=== PATIENT | female | born 1970 | race Caucasian/White ===

== ENCOUNTER 2025-04-08 06:33 | Observation (INO) ==
--- NOTE | 2025-04-08 07:20 | Emergency Department Note ---
History of Present Illness General Chief complaint: Urinary Symptoms Stated complaint: URINARY SYMPTOMS Time Seen by Provider: 04/08/25 06:54 History of Present Illness Maximum Pain Intensity: 10 This is a 54-year-old female w/ history of hysterectomy that presents to the emergency department via private vehicle with complaints of "left lower quadrant abdominal pain, urinary frequency". The patient notes this past Saturday she developed hematuria and frequent urination. Symptoms have progressed and now notes left lower quadrant abdominal pain. She notes PCP visit on Saturday and had an ultrasound of the kidneys and bladder area. She notes that there was a lesion found and is pending MRI. The patient however notes progressive left lower quadrant abdominal pain now 04/02. Currently on oral Cipro plus Azo. She has nausea. No fevers or vomiting. No pertinent past medical history. History of hysterectomy in the past. No known drug allergies. Home Medications Medication Instructions Recorded Confirmed Type ciprofloxacin HCl 500 mg tablet 500 mg PO BID 04/08/25 04/08/25 History cyanocobalamin (vitamin B-12) 100 100 mcg PO DAILY 04/08/25 04/08/25 History mcg tablet (Vitamin B-12) magnesium 250 mg tablet 250 mg PO DAILY 04/08/25 04/08/25 History omega 1-ekj-vwp-fish oil 1,200 mg 1 cap PO DAILY 04/08/25 04/08/25 History (144 mg-216 mg) capsule (Fish Oil) omeprazole 40 mg capsule,delayed 40 mg PO QAM 04/08/25 04/08/25 History release semaglutide 1 mg/dose (4 mg/3 mL) 4 mg subcut WK 04/08/25 04/08/25 History subcutaneous pen injector (Ozempic) venlafaxine 37.5 mg 37.5 mg PO QAM 04/08/25 04/08/25 History capsule,extended release 24 hr Allergies Allergy/AdvReac Type Severity Reaction Status Date / Time Sulfa (Sulfonamide AdvReac Intermediate HIVES Unverified 11/19/17 11:18 Antibiotics) Past Med/Surg History Problem List (Updated 04/08/25 @ 20:36 by Fabio Gold PA-C) Nicotine use disorder Renal mass Pulmonary nodule less than 6 mm determined by computed tomography of lung Hydronephrosis concurrent with and due to calculi of kidney and ureter (Acute) Left ureteral calculus (Acute) Social History Smoking Status: Current every day smoker Tobacco Type: Cigarettes Do You Dip or Chew Tobacco: No; Tobacco Cessation Education Requested by Patient: No Hx Alcohol Use: No Hx Substance Use: No Preferred Language: German Communication Ability: Effective Woolen Suiting Shrinker Required: No Beliefs That Will Affect Care: None Current Living Situation: Spouse Other Information That Helps Us Care for You: No Feels Safe at Home: Yes Safety Concerns: Feels Safe At This Time Assistive Devices: Glasses Review of Systems A total of 10 systems reviewed and were otherwise negative Physical Exam Vital Signs Vital Signs - 24 hr 04/08/25 09:00 04/08/25 10:00 Pulse Rate [Right Finger] 87 85 Respiratory Rate 16 18 Blood Pressure [Right Arm] 161/82 H 155/83 H Blood Pressure Mean [Right Arm] 108 107 Pulse Oximetry 98 97 Oxygen Delivery Method Room Air Room Air VITAL SIGNS - Vital signs and nursing notes were reviewed. Stable and afebrile. GENERAL - 54-year-old female appearing her stated age who is in no acute distress. Communicates well with provider and answers questions appropriately. SKIN - Without rashes. HEAD - NC/AT. EYES - PERRL with EOMI bilaterally. Sclera anicteric. NECK - No nuchal rigidity. LUNGS - CTA CARDIAC - RRR ABDOMEN - Abdominal contour normal without pulsations or visible masses. BS normoactive all four quadrants. LLQ abd TTP. No palpable masses, hepatosplenomegaly, or ascites noted. EXTREMITIES - +5/5 strength noted in UE/LE bilaterally. NEUROLOGIC - Cranial nerves II through XII grossly intact. PSYCH - alert, oriented and pleasant on exam Course Administered Medications Lactated Ringer's (Lr) 1,000 mls @ 100 mls/hr IV .Q10H PENDING SALE TO [facility] Stop: 04/11/25 14:12 Last Admin: 04/09/25 04:17 Dose: 100 mls/hr Documented By: jeny Infusion: 04/09/25 04:07 Dose: Infused Documented By: jeny Admin: 04/08/25 18:07 Dose: 100 mls/hr Documented By: LUMA Ketorolac Tromethamine (Ketorolac Tromethamine 15 Mg/Ml Vial) 15 mg IV Q6H PRN PRN Reason: Moderate Pain (Scale 4, 5, 6) Stop: 04/13/25 14:12 Last Admin: 04/09/25 05:39 Dose: 15 mg Documented By: jeny Admin: 04/08/25 18:03 Dose: 15 mg Documented By: LUMA Tamsulosin HCl (Tamsulosin Hcl 0.4 Mg Cap) 0.4 mg PO HS JEFF Stop: 05/08/25 20:59 Last Admin: 04/08/25 20:15 Dose: 0.4 mg Documented By: jeny Discontinued Medications Hydromorphone HCl (Hydromorphone Inj 0.5 Mg/0.5 Ml Syr) 0.5 mg IV NOW STA Stop: 04/08/25 09:03 Last Admin: 04/08/25 09:12 Dose: 0.5 mg Documented By: danya Hydromorphone HCl (Hydromorphone Inj 0.5 Mg/0.5 Ml Syr) 0.5 mg IV NOW STA Stop: 04/08/25 10:05 Last Admin: 04/08/25 10:11 Dose: 0.5 mg Documented By: danya Sodium Chloride (Nss) 1,000 mls @ 999 mls/hr IV .Q1H1M ONE Stop: 04/08/25 10:02 Last Infusion: 04/08/25 10:56 Dose: Infused Documented By: danya Admin: 04/08/25 09:12 Dose: 999 mls/hr Documented By: danya Ceftriaxone Sodium (Rocephin) 2,000 mg in 50 mls @ 100 mls/hr IV NOW STA Stop: 04/08/25 11:44 Last Infusion: 04/08/25 12:10 Dose: Infused Documented By: Admin: 04/08/25 11:36 Dose: 100 mls/hr Documented By: MMF Ioversol (Optiray 320 100ml) 94 ml IV ONCE ONE Stop: 04/08/25 08:18 Last Admin: 04/08/25 08:17 Dose: 94 ml Documented By: WANG Ketorolac Tromethamine (Ketorolac Tromethamine 15 Mg/Ml Vial) 10 mg IV NOW ONE Stop: 04/08/25 10:05 Last Admin: 04/08/25 10:10 Dose: 10 mg Documented By: danya Tamsulosin HCl (Tamsulosin Hcl 0.4 Mg Cap) 0.4 mg PO NOW ONE Stop: 04/08/25 09:03 Last Admin: 04/08/25 09:12 Dose: 0.4 mg Documented By: danya Medical Decision Making Laboratory Data 04/08/25 07:25 04/08/25 07:25 Lab Results 04/08/25 04/08/25 Range/Units 06:53 07:25 WBC 9.36 (4.8-10.8) K/ul RBC 4.15 L (4.20-5.40) M/uL Hgb 13.0 (12.0-16.0) g/dl Hct 38.7 (37.0-47.0) % MCV 93.3 (80.0-100.0) fL MCH 31.3 (25.0-34.0) pg MCHC 33.6 (32.0-36.0) g/dL RDW Std Deviation 43.4 (36.4-46.3) fL RDW Coeff of Juliann 12.6 (11.5-14.5) % Plt Count 388 (130-400) K/uL MPV 9.3 L (9.4-12.4) fL Immature Gran % (Auto) 0.2 % Neut % (Auto) 58.3 % Lymph % (Auto) 30.9 % [place]ford % (Auto) 9.0 % Eos % (Auto) 1.3 % Baso % (Auto) 0.3 % Neut # (Auto) 5.46 (1.40-6.50) K/uL Lymph # (Auto) 2.89 (1.20-3.40) K/uL Blackford # (Auto) 0.84 H (0.11-0.59) K/uL Eos # (Auto) 0.12 (0.00-0.50) K/uL Baso # (Auto) 0.03 (0.00-0.20) K/uL Immature Gran # (Auto) 0.02 (0.01-0.20) K/uL Sodium 140 (136-145) mmol/L Potassium 4.1 (3.5-5.1) mmol/L Chloride 108 H (98-107) mmol/L Carbon Dioxide 25 (21-32) mmol/L Anion Gap 7 (3-11) BUN 12 (6-23) mg/dl Creatinine 0.78 (0.6-1.2) mg/dl Est Cr Clr Drug Dosing 84.9 ml/min eGFR 90.76 BUN/Creatinine Ratio 15.4 (10-20) Glucose 100 H (70-99(Fasting)) mg/dl Calcium 9.5 (8.6-10.3) mg/dl Total Bilirubin 0.4 (0.2-1.0) mg/dl AST 12 L (13-39) U/L ALT 14 (7-52) U/L Alkaline Phosphatase 59 (34-104) U/L Total Protein 6.9 (6.0-8.3) gm/dl Albumin 4.0 (3.4-5.0) gm/dl Globulin 2.9 (2.5-4.0) gm/dl Albumin/Globulin Ratio 1.4 (0.9-2) Urine Color Dark Yellow Urine Appearance Clear (Clear) Urine pH 6.5 (4.5-7.5) Ur Specific [place] 1.008 (1.000-1.030) Urine Protein Negative (Negative) Urine Glucose (UA) Negative (Negative) Urine Ketones Negative (Negative) Urine Blood 2+ H (Negative) Urine Nitrite Positive A (Negative) Urine Bilirubin Negative (Negative) Urine Urobilinogen Negative (Negative) Ur Leukocyte Esterase Trace H (Negative) Urine WBC (Auto) 0-5 (0-5) /hpf Urine RBC (Auto) 3-5 H (0-2) /hpf U Hyaline Cast (Auto) 0-2 (0-2) /lpf U Epithel Cells (Auto) 3-5 H (0-2) /hpf Urine Bacteria (Auto) None Seen (None Seen) Urine Comment Imaging Data Radiologist's Impression: Retrograde Pyelogram 04/08/25 00:00 FL retrograde includes kub CLINICAL HISTORY: STENT COMPARISON STUDY: None FLUOROSCOPY TIME: 16 seconds FLUOROSCOPY IMAGES: 4 EXPOSURE DOSE: 4 mGy FINDINGS: Fluoroscopy was provided for urologic procedure. IMPRESSION: Intraoperative fluoroscopy. ACT 112: Negative or not required by law. Electronically signed by: Aj Stevenson M.D. 04/08/2025 3:46 PM Abdomen/Pelvis CT 04/08/25 07:21 CT SCAN OF THE ABDOMEN AND PELVIS WITH IV CONTRAST CLINICAL HISTORY: Left lower quadrant abdominal pain. Dysuria. COMPARISON STUDY: Abdominal ultrasound dated 03/24/2008. TECHNIQUE: Following the IV administration of 94 cc of Optiray 320, CT scan of the abdomen and pelvis is performed from the lung bases to the proximal femora. Images are reviewed in the axial, sagittal, and coronal planes. IV contrast was administered without complication. A dose lowering technique was utilized adhering to the principles of ALARA. CT DOSE: 1345.23 mGy.cm FINDINGS: Lung bases: The heart is normal in size and without pericardial effusion. There is a 4 mm pulmonary nodule at the left lung base seen on axial image #9. The lung bases are otherwise clear. There is a tiny hiatal hernia. Liver: The contrast-enhanced liver is normal in size, contour, and attenuation. There is no intrahepatic biliary ductal dilatation. The hepatic veins and portal veins are patent. Gallbladder: Unremarkable. Spleen: Normal in size and attenuation. Pancreas: Unremarkable. Adrenal glands: Unremarkable. Kidneys: The contrast enhanced kidneys are normal in size. There is a 4 mm obstructing calculus at the left vesicoureteral junction seen on axial image #316. This causes mild to moderate left hydroureteronephrosis. There is urothelial thickening and enhancement noted in the left ureter. Mild left-sided perinephric stranding is observed. Left renal enhancement is slightly heterogeneous. The right kidney enhances normally. No additional calculi are clearly identified in either kidney on this contrast-enhanced examination. There is no right ureteral stone or right-sided hydronephrosis. There is an 11 mm indeterminate cortical hypodensity in the anterior interpolar right kidney seen on image #178. Overlying cortical scarring is suggested. Abdominal vasculature: The abdominal aorta is normal in course and caliber. Bowel: There is no bowel obstruction. The appendix is well-visualized and normal. Peritoneum: There is no intraperitoneal free air or abdominal ascites. There is a fat-containing umbilical hernia. Lymphadenopathy: None. Pelvic viscera: The bladder is decompressed and not well evaluated. Question of a left-sided ureterocele on axial image #318. Skeletal structures: No lytic or blastic lesions are seen. Sclerotic change is seen in the sacroiliac joints and pubic symphysis. Mild degenerative changes noted in the lumbar spine. IMPRESSION: 1. There is a 4 mm obstructing calculus at the left vesicoureteral junction. This causes mild to moderate left hydroureteronephrosis. 2. There is urothelial thickening and enhancement within left ureter as well as slightly heterogeneous and diminished enhancement of the left kidney as compared to the right. This is likely related to obstruction/hydronephrosis. Correlate with clinical findings and urinalysis to assess for superimposed urinary tract infection. 3. There is an indeterminant 11 mm cortical hypodensity in the interpolar right kidney. Overlying cortical scarring is suggested and this may represent a calyceal diverticulum. Additionally, there is a possible left-sided ureterocele. Follow-up with urology is recommended, as is a CT urogram in 3-4 months time for reassessment of both findings. 4. There is a 4 mm pulmonary nodule the left lung base. A follow-up chest CT in 3-4 months time is recommended for reassessment and full evaluation of the thorax. 5. Additional findings as above. ACT 112: Positive. There are findings on this exam that require communication between the performing entity and the patient following Patient Test Result Information Act ([place] Act 112) guidelines. Electronically signed by: Lyle Archuleta M.D. 04/08/2025 8:48 AM MDM Narrative Patient was seen and evaluated as above in room B09b. Review was performed of triage nursing notes and vital signs. I did review pertinent previous visits and patient history. After obtaining a thorough history and physical examination the above work up was performed. Patient presents to us today with the above symptoms. She has a lower quadrant abdominal pain, dysuria and frequent urinations. Hematuria as well. Bladder scan does not show any evidence of urinary retention Options of care were discussed with the patient. IV access was established per labs were drawn. There is no leukocytosis or concerning anemia. No emergent metabolic disturbance. Urinalysis with positive nitrites, 2+ blood, trace leukocytes, 35 reds and 35 epithelial cells. No bacteria. White count is normal within the urine. CT scan was obtained of the abdomen/pelvis. Results as above. 4 mm obstructing calculus at the UVJ. Mild to moderate left hydroureteronephrosis. Urothelial thickening noted which may be just secondary to obstruction versus an ascending UTI. IV ceftriaxone added. Patient did receive IV analgesics during her time here. I discussed presentation with urology. My plan is medical admission. Please refer to further documentation regarding her stay. I also discussed this with hospitalist service. GCS: 15 In the evaluation and treatment of this patient the following differential diagnoses were entertained: UTI, pyelonephritis, infected kidney stone, diverticulitis, appendicitis, among others. Impression & Plan Left ureteral calculus, Hydronephrosis concurrent with and due to calculi of kidney and ureter Discharge Plan Visit Data Chief Complaint: Urinary Symptoms Stated Complaint: URINARY SYMPTOMS ED Provider: Cornel Sahu ED Midlevel Provider: Fabio Gold Discharge Problem: Left ureteral calculus, Hydronephrosis concurrent with and due to calculi of kidney and ureter Patient Disposition: Admitted As Inpatient Condition: Good Discharge Instructions Interventions: ED Discharge Assessment Last Done: 04/08/25 14:14
[2025-04-08 07:41] LABS: Hematocrit (blood only) 38.7 % (37.0-47.0); Hemoglobin 13.0 g/dl (12.0-16.0); Immature Granulocytes # (auto) 0.02 K/uL (0.01-0.20); Immature Granulocytes % (auto) 0.2 %; Mean Corpuscular Hemoglobin 31.3 pg (25.0-34.0); Mean Corpuscular Volume 93.3 fL (80.0-100.0); Platelet Count 388 K/uL (130-400); RDW Standard Deviation 43.4 fL (36.4-46.3); Red Blood Count 4.15 M/uL (4.20-5.40); White Blood Count 9.36 K/ul (4.8-10.8)
[2025-04-08 07:52] LABS: Appearance Urine Clear (Clear); Bacteria Urine Automated None Seen (None Seen); Cast Urine Automated 0-2 /lpf (0-2); Glucose Urine UA Negative (Negative); WBC Urine Automated 0-5 /hpf (0-5)
[2025-04-08 08:03] LABS: Alanine Aminotransferase 14.0 U/L (7-52); Albumin Globulin Ratio 1.4 (0.9-2); Albumin Level 4.0 gm/dl (3.4-5.0); Alkaline Phosphatase 59.0 U/L (34-104); Anion Gap 7.0 (3-11); Bilirubin,Total 0.4 mg/dl (0.2-1.0); Blood Urea Nitrogen 12.0 mg/dl (6-23); Calcium 9.5 mg/dl (8.6-10.3); Carbon Dioxide 25.0 mmol/L (21-32); Chloride 108.0 mmol/L (98-107); Creatinine Clr Calc Pharmacy 84.9 ml/min; Globulin 2.9 gm/dl (2.5-4.0); Glucose 100.0 mg/dl (70-99(Fasting)); Potassium 4.1 mmol/L (3.5-5.1); Sodium 140.0 mmol/L (136-145); Total Protein 6.9 gm/dl (6.0-8.3)
[2025-04-08] MEDS: OPTIRAY 320 100ml IV ONE (08:17)
--- NOTE | 2025-04-08 08:51 | CT Scan Report ---
CT SCAN OF THE ABDOMEN AND PELVIS WITH IV CONTRAST CLINICAL HISTORY: Left lower quadrant abdominal pain. Dysuria. COMPARISON STUDY: Abdominal ultrasound dated 03/24/2008. TECHNIQUE: Following the IV administration of 94 cc of Optiray 320, CT scan of the abdomen and pelvi s is performed from the lung bases to the proximal femora. Images are reviewed in the axial, sagittal , and coronal planes. IV contrast was administered without complication. A dose lowering technique wa s utilized adhering to the principles of ALARA. CT DOSE: 1345.23 mGy.cm FINDINGS: Lung bases: The heart is normal in size and without pericardial effusion. There is a 4 mm pulmonary n odule at the left lung base seen on axial image #9. The lung bases are otherwise clear. There is a ti ny hiatal hernia. Liver: The contrast-enhanced liver is normal in size, contour, and attenuation. There is no intrahepa tic biliary ductal dilatation. The hepatic veins and portal veins are patent. Gallbladder: Unremarkable. Spleen: Normal in size and attenuation. Pancreas: Unremarkable. Adrenal glands: Unremarkable. Kidneys: The contrast enhanced kidneys are normal in size. There is a 4 mm obstructing calculus at th e left vesicoureteral junction seen on axial image #316. This causes mild to moderate left hydrourete ronephrosis. There is urothelial thickening and enhancement noted in the left ureter. Mild left-sided perinephric stranding is observed. Left renal enhancement is slightly heterogeneous. The right kidne y enhances normally. No additional calculi are clearly identified in either kidney on this contrast-e nhanced examination. There is no right ureteral stone or right-sided hydronephrosis. There is an 11 m m indeterminate cortical hypodensity in the anterior interpolar right kidney seen on image #178. Over lying cortical scarring is suggested. Abdominal vasculature: The abdominal aorta is normal in course and caliber. Bowel: There is no bowel obstruction. The appendix is well-visualized and normal. Peritoneum: There is no intraperitoneal free air or abdominal ascites. There is a fat-containing umbi lical hernia. Lymphadenopathy: None. Pelvic viscera: The bladder is decompressed and not well evaluated. Question of a left-sided ureteroc michael on axial image #318. Skeletal structures: No lytic or blastic lesions are seen. Sclerotic change is seen in the sacroiliac joints and pubic symphysis. Mild degenerative changes noted in the lumbar spine. IMPRESSION: 1. There is a 4 mm obstructing calculus at the left vesicoureteral junction. This causes mild to mode rate left hydroureteronephrosis. 2. There is urothelial thickening and enhancement within left ureter as well as slightly heterogeneou s and diminished enhancement of the left kidney as compared to the right. This is likely related to o bstruction/hydronephrosis. Correlate with clinical findings and urinalysis to assess for superimposed urinary tract infection. 3. There is an indeterminant 11 mm cortical hypodensity in the interpolar right kidney. Overlying cor tical scarring is suggested and this may represent a calyceal diverticulum. Additionally, there is a possible left-sided ureterocele. Follow-up with urology is recommended, as is a CT urogram in 3-4 mon ths time for reassessment of both findings. 4. There is a 4 mm pulmonary nodule the left lung base. A follow-up chest CT in 3-4 months time is re commended for reassessment and full evaluation of the thorax. 5. Additional findings as above. ACT 112: Positive. There are findings on this exam that require communication between the performing entity and the patient following Patient Test Result Information Act ([place] Act 112) guidelines. Electronically signed by: Lyle Archuleta M.D. 04/08/2025 8:48 AM
[2025-04-08] MEDS: TAMSULOSIN HCL 0.4 MG CAP PO ONE (09:12)
[2025-04-08] MEDS: SODIUM CHLORIDE 0.9% 1,000 ML IV ONE (09:12)
[2025-04-08] MEDS: HYDROmorphone INJ 0.5 MG/0.5 ML SYR IV STA ×2 (09:12→10:11)
[2025-04-08] MEDS: KETOROLAC TROMETHAMINE 15 MG/ML VIAL IV ONE (10:10)
[2025-04-08] MEDS: cefTRIAXone SODIUM 2,000 MG/50 ML BAG IV STA (11:36)
--- NOTE | 2025-04-08 11:49 | History & Physical Report ---
Date of Service April 08, 2025 Assessment & Plan (1) Left ureteral calculus: (2) Hydronephrosis concurrent with and due to calculi of kidney and ureter: Plan: Left (3) Pulmonary nodule less than 6 mm determined by computed tomography of lung: Plan: Recommend repeat CT in 3 to 4 months (4) Renal mass: (5) Nicotine use disorder: Plan Patient is a 54-year-old female presents with symptomatic left ureteral calculus with evidence of hydronephrosis. Admit to [facility] for possible surgical intervention Consult urology IV fluids Tamsulosin Strain urine Pain medication Continue outpatient medications as ordered Patient declined any nicotine supplementation Patient aware of small pulmonary nodule that will need follow-up History of Present Illness Chief Complaint: Left back, flank, abdominal pain Primary Care Provider: [place], Patient is a 54-year-old female who over the weekend started with some intermittent left flank and back pain. She also noticed some hematuria. She saw her PCP on Saturday. Urine analysis was positive for hematuria. She was placed on ciprofloxacin. They also performed a renal ultrasound which showed nodular lesion but no evidence of hydronephrosis at that time. She was coordinated for outpatient MRI of the kidney to evaluate this nodule lesion. However, patient continued to have intermittent, colicky, crampy left flank and back pain. This was associated with some nausea and chills. The pain got so severe overnight that she came to the emergency room today for evaluation. In the emergency room CT scanning showed evidence of obstructing 4 mm left ureter stone with some hydronephrosis. Patient was referred to our service for further evaluation. Time my evaluation the patient's pain was significantly improved. She did receive some Dilaudid and Toradol here in the ED. She confirms the above history. She states that she herself has never had any history of kidney stones. Her daughter has had kidney stones but no other family members. She smokes about 8 cigarettes a day. Denies any alcohol use. Denies any cough or cold symptoms. No chest pain or shortness of breath. She is on Effexor and a t ransdermal hormone patch for postmenopausal symptoms. She is on compounded semaglutide for weight loss. She denies any other significant medical issues. Allergies Allergy/AdvReac Type Severity Reaction Status Date / Time Sulfa (Sulfonamide AdvReac Intermediate HIVES Unverified 11/19/17 11:18 Antibiotics) Home Medications Medication Instructions Recorded Confirmed Type ciprofloxacin HCl 500 mg tablet 500 mg PO BID 04/08/25 04/08/25 History cyanocobalamin (vitamin B-12) 100 100 mcg PO DAILY 04/08/25 04/08/25 History mcg tablet (Vitamin B-12) magnesium 250 mg tablet 250 mg PO DAILY 04/08/25 04/08/25 History omega 3-utv-pwt-fish oil 1,200 mg 1 cap PO DAILY 04/08/25 04/08/25 History (144 mg-216 mg) capsule (Fish Oil) omeprazole 40 mg capsule,delayed 40 mg PO QAM 04/08/25 04/08/25 History release semaglutide 1 mg/dose (4 mg/3 mL) 4 mg subcut WK 04/08/25 04/08/25 History subcutaneous pen injector (Ozempic) venlafaxine 37.5 mg 37.5 mg PO QAM 04/08/25 04/08/25 History capsule,extended release 24 hr Past Med/Surg History Problem List (Updated 04/08/25 @ 11:48 by Lei Iniguez DO) Nicotine use disorder Renal mass Pulmonary nodule less than 6 mm determined by computed tomography of lung Hydronephrosis concurrent with and due to calculi of kidney and ureter Left ureteral calculus Social History Smoking Status: Current every day smoker Tobacco Type: Cigarettes Preferred Language: Greek Feels Safe at Home: Yes Review of Systems Review of Systems: Pertinent positive and negative review of systems as mentioned in the HPI Physical Exam Physical Exam: Constitutional: Alert, nontoxic HEENT: Mucous membranes moist. Sclera clear Neck: Soft, no adenopathy Lungs: Clear to auscultation, decreased, no wheezes rales or rhonchi CV: S1-S2, regular Abdomen: Soft, nontender, nondistended, no significant left CVA tenderness Extremities: No significant edema Musculoskeletal: No significant joint tenderness Neuro: No focal deficits Psych: Cooperative, normal mood Results & Data Results & Data Vital Signs (Past 12 Hours) Vital Signs Temp Pulse Pulse Resp BP BP Pulse Ox 04/08/25 10:00 85 18 155/83 H 97 04/08/25 09:00 87 16 161/82 H 98 04/08/25 07:00 93 H 20 181/96 H 97 04/08/25 06:47 37 C 85 17 164/99 H 97 04/08/25 06:38 36.5 C 97 H 17 153/89 H 96 O2 Del Method 04/08/25 10:00 Room Air 04/08/25 09:00 Room Air 04/08/25 07:00 Room Air 04/08/25 06:47 Room Air 04/08/25 06:38 Room Air Diagnostic Findings Reviewed imaging, laboratory and diagnostic studies. Pertinent findings as below. CT of the abdomen pelvis showed a 4 mm obstructing left vesicular ureteral calculus with some left hydronephrosis. There is also a 11 mm cortical hyp odensity in the right kidney. Also incidentally noted a 4 mm pulmonary nodule recommend follow-up in 3 to 4 months. WBCs 9.3 Hemoglobin 13.0 Platelets of 388 Electrolytes stable Creatinine 0.78 LFTs stable Urinalysis positive for nitrates, trace leukocyte esterase, no bacteria, 2+ blood Code Status & VTE Plan VTE Prophylaxis Plan VTE Prophylaxis will be ordered: Yes
--- NOTE | 2025-04-08 12:17 | Urology Consultation ---
Date of Consultation April 08, 2025 Assessment & Plan (1) Left ureteral calculus: (2) Hydronephrosis concurrent with and due to calculi of kidney and ureter: Plan 54 year old female admitted with an obstructing left UVJ stone and concern for infection She is afebrile and hemodynamically stable Labs show no leukocytosis and normal renal function UA with +nitrite. She has been on Cipro outpt. Discussed acute stone management with cystoscopy, stent placement, possible ston e treatment depending on findings. Risks and benefits were discussed. Ureteral stents were discussed as well as postoperative issues and pain management. She is aware a second procedure may be needed. All questions were answered. Plan to proceed to the OR for cystoscopy, left retrograde pyelogram, left ureteral stone placement, possible stone treatment. Keep NPO. Received IV Ceftriaxone in the ED. Supervising Physician Co-Signing Physician Notes Chart reviewed Patient assessed plan discussed with patients risks benefits cystoscopy ureteroscopy laser litho in agreement, plan reviewed and agree as written. History of Present Illness History of Present Illness 54 year old female who over the weekend started with some intermittent left flank and back pain. She also noticed some hematuria. She was placed on ciprofloxacin for possible UTI. Due to worsening pain , she presented to to the emergency room today for evaluation. In the emergency room CT showed evidence of obstructing 4 mm left UVJ stone. ED course included Dilaudid, flomax, toradol, and ceftriaxone. She is admitted to medicine service. Allergies Allergy/AdvReac Type Severity Reaction Status Date / Time Sulfa (Sulfonamide AdvReac Intermediate HIVES Unverified 11/19/17 11:18 Antibiotics) Home Medications Medication Instructions Recorded Confirmed Type ciprofloxacin HCl 500 mg tablet 500 mg PO BID 04/08/25 04/08/25 History cyanocobalamin (vitamin B-12) 100 100 mcg PO DAILY 04/08/25 04/08/25 History mcg tablet (Vitamin B-12) magnesium 250 mg tablet 250 mg PO DAILY 04/08/25 04/08/25 History omega 6-cir-imz-fish oil 1,200 mg 1 cap PO DAILY 04/08/25 04/08/25 History (144 mg-216 mg) capsule (Fish Oil) omeprazole 40 mg capsule,delayed 40 mg PO QAM 04/08/25 04/08/25 History release semaglutide 1 mg/dose (4 mg/3 mL) 4 mg subcut WK 04/08/25 04/08/25 History subcutaneous pen injector (Ozempic) venlafaxine 37.5 mg 37.5 mg PO QAM 04/08/25 04/08/25 History capsule,extended release 24 hr Patient History Social History Smoking Status: Current every day smoker Tobacco Type: Cigarettes Preferred Language: Sammarinese Feels Safe at Home: Yes Review of Systems Review of Systems: All systems reviewed & are unremarkable except as noted in HPI & below Physical Exam Constitutional: no acute distress Respiratory: no respiratory distress and no labored breathing Skin: No visible rashes or lesions to exposed skin areas Neurologic: moves all extremities and awake Psychiatric: A+Ox3, euthymic affect Results & Data Vital Signs (Past 12 Hours) Vital Signs Temp Pulse Pulse Resp BP BP Pulse Ox 04/08/25 11:44 86 04/08/25 10:00 85 18 155/83 H 97 04/08/25 09:00 87 16 161/82 H 98 04/08/25 07:00 93 H 20 181/96 H 97 04/08/25 06:47 37 C 85 17 164/99 H 97 04/08/25 06:38 36.5 C 97 H 17 153/89 H 96 O2 Del Method 04/08/25 11:44 04/08/25 10:00 Room Air 04/08/25 09:00 Room Air 04/08/25 07:00 Room Air 04/08/25 06:47 Room Air 04/08/25 06:38 Room Air PG Care Time/CCT Total # of Minutes Spent Total Time Spent with Patient: Total time spent is greater than 50% in coordination of care (as documented) at patient's floor/unit and/or counseling patient: Coding Level of Care Code 49401 IN/OBS CONSULT LVL 4,60M Diagnoses Left ureteral calculus N20.1 Hydronephrosis concurrent with and due to calculi of kidney and ureter N13.2
[2025-04-08] MEDS ORDERED: ONDANSETRON INJ 2 MG/ML 2 ML VIAL ONE (13:05)
[2025-04-08] MEDS ORDERED: PROPOFOL IV EMULSION 10 MG/ML 20 ML VIAL IV ONE (13:05)
[2025-04-08] MEDS ORDERED: MIDAZOLAM HCL 1 MG/ML 2ML VIAL ONE (13:05)
[2025-04-08] MEDS ORDERED: LIDOCAINE 2% 2 ML VIAL/AMP(20MG/ML) INFIL ONE (13:05)
[2025-04-08] MEDS ORDERED: HYDROmorphone INJ 0.5 MG/0.5 ML SYR IV PRN (14:13)
[2025-04-08] MEDS ORDERED: ACETAMINOPHEN 325 MG TAB PO PRN (14:13)
[2025-04-08] MEDS ORDERED: ONDANSETRON INJ 2 MG/ML 2 ML VIAL IV PRN ×2 (14:13→15:04)
[2025-04-08] MEDS ORDERED: PROMETHAZINE HCL 6.25 MG in SODIUM CHLORIDE 0.9% 50 ML IV PRN (15:04)
[2025-04-08] MEDS ORDERED: NALOXONE HCL 0.4 MG/1 ML VIAL/CARP IV PRN (15:04)
[2025-04-08] MEDS ORDERED: ATROPINE SULFATE 0.1 MG/ML 10ML SYR IV PRN (15:04)
[2025-04-08] MEDS ORDERED: FLUMAZENIL 0.1 MG/1 ML 10 ML VIAL IV PRN (15:04)
--- NOTE | 2025-04-08 15:04 | Anesthesiology Consultation ---
Date of Service April 08, 2025 Assessment & Plan Chart Review Chart Review: Acceptable Risk for Surgery and Patient NOT seen in Pre Admission Testing Consults Requested none ASA ASA2 Proposed Anesthesia Anesthesia Type: General Risk / Benefits Reviewed With: PT / POA / Parent / Guardian, Accepts Plan and Informed Consent Obtained History Surgery Operation Date: 04/08/25 08:25 Proposed Procedures p Cystoscopy, Left Retrograde Pyelogram, Left Stent Placement, Possible Ureteroscopy, Laser Lithotripsy Stone Treatment - Buddy Ogden MD Height/Weight Height: 5 ft 3 in Weight: 82.6 kg Allergies Allergy/AdvReac Type Severity Reaction Status Date / Time Sulfa (Sulfonamide AdvReac Intermediate HIVES Unverified 11/19/17 11:18 Antibiotics) Medications Home Medications Medication Instructions Recorded Confirmed Last Taken ciprofloxacin HCl 500 mg tablet 500 mg PO BID 04/08/25 04/08/25 04/07/25 cyanocobalamin (vitamin B-12) 100 100 mcg PO DAILY 04/08/25 04/08/25 04/07/25 mcg tablet (Vitamin B-12) magnesium 250 mg tablet 250 mg PO DAILY 04/08/25 04/08/25 04/07/25 omega 6-upt-xjx-fish oil 1,200 mg 1 cap PO DAILY 04/08/25 04/08/25 04/07/25 (144 mg-216 mg) capsule (Fish Oil) omeprazole 40 mg capsule,delayed 40 mg PO QAM 04/08/25 04/08/25 04/07/25 release semaglutide 1 mg/dose (4 mg/3 mL) 4 mg subcut WK 04/08/25 04/08/25 04/07/25 subcutaneous pen injector (Ozempic) venlafaxine 37.5 mg 37.5 mg PO QAM 04/08/25 04/08/25 04/07/25 capsule,extended release 24 hr NPO Date Last Intake of Fluids: 04/08/25 Time Last Intake of Fluids: 08:00 Last Intake of Fluids Comment: sip water w/ meds today @ 1990 Date Last Intake of Solids: 04/07/25 Time Last Intake of Solids: 18:00 Past Medical History obese + tobacco GERD Exercise / Class Metabolic Activity II 4-5 Yardwork/Stairs/Walk up hill Past Anesthesia History No Hx of Anesthesia Complications and No Family Hx of Anesthesia Complications History of PONV No Hx of PONV and No Hx of Motion Sickness Social History Smoking Status: Current every day smoker Physical Exam Vital Signs Last Vital Signs Temp 36.9 C 04/08/25 14:51 Pulse 80 04/08/25 14:51 Resp 20 04/08/25 14:51 BP 157/82 H 04/08/25 14:51 Pulse Ox 99 04/08/25 14:51 O2 Del Method Room Air 04/08/25 14:51 Constitutional + obese; no acute distress ENMT Mouth: no dentition abnormality Thyromental Distance: < 3.5 Finger Breadths Mallampati Class: II Neck normal visual inspection and trachea midline; neck extension not limited and no facial hair Respiratory normal respiratory effort Auscultation: lungs clear to auscultation bilaterally Cardiovascular Rate/Rhythm: regular rate and regular rhythm Heart Sounds: no murmur Vessels: no carotid bruit Musculoskeletal Spine: normal cervical ROM and no pain with cervical ROM Extremities: extremities normal to inspection Neurologic moves all extremities Motor/Sensory: no sensory deficit Psychiatric Orientation: alert and oriented x 3 Testing Laboratory Results 04/08/25 07:25 04/08/25 07:25 Urine Color Dark Yellow 04/08/25 06:53 Urine Appearance Clear (Clear) 04/08/25 06:53 Urine pH 6.5 (4.5-7.5) 04/08/25 06:53 Ur Specific [place] 1.008 (1.000-1.030) 04/08/25 06:53 Urine Protein Negative (Negative) 04/08/25 06:53 Urine Glucose (UA) Negative (Negative) 04/08/25 06:53 Urine Ketones Negative (Negative) 04/08/25 06:53 Urine Nitrite Positive (Negative) A 04/08/25 06:53 Ur Leukocyte Esterase Trace (Negative) H 04/08/25 06:53 Urine WBC (Auto) 0-5 /hpf (0-5) 04/08/25 06:53 Urine RBC (Auto) 3-5 /hpf (0-2) H 04/08/25 06:53 U Hyaline Cast (Auto) 0-2 /lpf (0-2) 04/08/25 06:53 U Epithel Cells (Auto) 3-5 /hpf (0-2) H 04/08/25 06:53 Urine Bacteria (Auto) None Seen (None Seen) 04/08/25 06:53 04/08/25 14:28 POC Ur Test NEG
[2025-04-08] MEDS ORDERED: DEXAMETHASONE SOD INJ 4 MG/ML VIAL ONE (15:15)
[2025-04-08] MEDS ORDERED: DIATRIZOATE MEGLUMINE 30% 100ML VIAL INSTIL PRN (15:24)
--- NOTE | 2025-04-08 15:37 | Post Operative Brief Note ---
PG Immediate Post Op with CF Date of Surgery April 08, 2025 Pre & Post Diagnosis Operation Date: 04/08/25 08:25 Pre-Op Diagnosis: Left ureteral calculus, hydronephrosis concurrent with and due to calculi of kidney and ureter Post-Op Diagnosis: Left ureteral calculus, hydronephrosis concurrent with and due to calculi of kidney and ureter I identified the patient and participated in the time-out.: Yes Procedure Operation Date: 04/08/25 08:25 Actual Procedures p Cystoscopy, Left Retrograde Pyelogram, Left Stent Placement(Left) - Buddy Ogden MD Surgeon Buddy Ogden MD [employer] Grinder na Estimated Blood Loss 2 Findings Consistent with Post-Op Diagnosis hydronephrosis, ureterocele Drains Other
--- NOTE | 2025-04-08 15:48 | Fluoroscopy Report ---
FL retrograde includes kub CLINICAL HISTORY: STENT COMPARISON STUDY: None FLUOROSCOPY TIME: 16 seconds FLUOROSCOPY IMAGES: 4 EXPOSURE DOSE: 4 mGy FINDINGS: Fluoroscopy was provided for urologic procedure. IMPRESSION: Intraoperative fluoroscopy. ACT 112: Negative or not required by law. Electronically signed by: Aj Stevenson M.D. 04/08/2025 3:46 PM
--- NOTE | 2025-04-08 16:07 | Operative Report ---
PG Post Operative Report Pre & Post Diagnosis Operation Date: 04/08/25 08:25 Pre-Op Diagnosis: Left ureteral calculus, hydronephrosis concurrent with and due to calculi of kidney and ureter Post-Op Diagnosis: Left ureteral calculus, hydronephrosis concurrent with and due to calculi of kidney and ureter I identified the patient and participated in the time-out.: Yes Procedure Operation Date: 04/08/25 08:25 Actual Procedures p Cystoscopy, Left Retrograde Pyelogram, Left Stent Placement(Left) - Buddy Ogden MD Surgeon Buddy Ogden MD Wallpaper Scraper na Estimated Blood Loss 2 Findings Consistent with Post-Op Diagnosis Specimens none Drains left 6 fr x 24 cm ureteral stent Description of Procedure SURGEON: Dr. Ogden PRESS SET UP PERSON: N/A PREOPERATIVE DIAGNOSIS: left ureteral stone POSTOPERATIVE DIAGNOSIS: Same PROCEDURE: cystoscopy, retrograde pyelogram, stone manipulation, left ureteral stent placement FINDINGS: 1. left ureteral stone, left ureterocele left ureteral stent placed curls in renal pelvis and bladder secured to string ANESTHESIA: General ESTIMATED BLOOD LOSS: N/A TUBES AND DRAINS: left ureteral stent 6 fr x 24 cm SPECIMENS: none COMPLICATIONS: none INDICATIONS FOR PROCEDURE: See preoperative diagnosis OPERATIVE DETAIL: The patient was prepped and draped in the usual fashion in the operating room. Antibiotics were given prior to starting the procedure. A well lubricated rigid cystoscope was inserted into the urethral meatus and advanced into the bladder. Care was taken to keep the lumen in the center of view. Cystourethroscopy was completed and unremarkable aside from inflammation and erythema mainly at the bladder neck and trigone. The left and right ureteral orifices were identified in the orthotopic positions. A left ureterocele was noted. A 5 fr open ended ureteral catheter was advanced into the ureteral orifice over a straight sensor wire with some difficulty due to a ureterocele and the stone it was difficult to find he right angle and required some manipulation under flouroscopic guidance to find the right angle and advance the wire to the renal pelvis. The wire was removed and a retrograde pyelogram was performed and notable for a dilated collecting system. The wire was replaced and the open ended catheter was removed. Some purulent drainage was noted. A 6 fr x 24 cm ureteral stent was then placed with positioning confirmed visually and fluoroscopically after removing the string. All parts of the cystoscope and ureteroscope were removed intact from the patient. The patient tolerated the procedure well. Please note thatI was present for and directly performed all components of the procedure. I attest to the content of the Intraoperative Record and any orders documented therein. Any exceptions are noted below.
--- NOTE | 2025-04-08 16:37 | Anesthesiology Progress Note ---
Date of Service April 08, 2025 Anesthesia Post Procedure Vital Signs Vital Signs: Temp Pulse Pulse Pulse Resp BP BP 04/08/25 16:35 80 18 129/59 L 04/08/25 16:20 82 20 134/67 04/08/25 16:10 81 16 133/73 04/08/25 16:00 36.5 C 84 15 137/67 04/08/25 15:50 83 13 135/69 04/08/25 15:40 36.0 C L 85 12 134/73 04/08/25 14:51 36.9 C 80 20 04/08/25 14:31 85 18 04/08/25 14:00 153/75 H 04/08/25 13:00 73 12 128/72 04/08/25 12:00 81 12 143/73 H 04/08/25 11:44 86 04/08/25 10:00 85 18 04/08/25 09:00 87 16 04/08/25 07:00 93 H 20 04/08/25 06:47 37 C 85 17 04/08/25 06:38 36.5 C 97 H 17 153/89 H BP Pulse Ox O2 Del Method O2 Flow Rate 04/08/25 16:35 95 Room Air 04/08/25 16:20 94 Room Air 04/08/25 16:10 94 Room Air 04/08/25 16:00 93 Room Air 04/08/25 15:50 95 Oxymask 6 04/08/25 15:40 100 Oxymask 6 04/08/25 14:51 157/82 H 99 Room Air 04/08/25 14:31 153/75 H 98 Room Air 04/08/25 14:00 04/08/25 13:00 96 04/08/25 12:00 98 04/08/25 11:44 04/08/25 10:00 155/83 H 97 Room Air 04/08/25 09:00 161/82 H 98 Room Air 04/08/25 07:00 181/96 H 97 Room Air 04/08/25 06:47 164/99 H 97 Room Air 04/08/25 06:38 96 Room Air Pain Intensity Lower Abdomen: Pain Intensity: 10 Transfer of Care Handoff Completed per policy Notes Mental Status: alert / awake / arousable Patient Amnestic to Procedure: Yes Nausea / Vomiting: adequately controlled Pain: adequately controlled Airway Patency, RR, SpO2: stable & adequate BP & HR: stable & adequate Hydration State: stable & adequate Anesthetic Complications: no major complications apparent
[2025-04-08 17:29] VITALS: RESP 16
[2025-04-08] MEDS: KETOROLAC TROMETHAMINE 15 MG/ML VIAL IV PRN (18:03)
[2025-04-08] MEDS: LACTATED RINGER'S 1,000 ML IV SCH (18:07)
[2025-04-08] MEDS: TAMSULOSIN HCL 0.4 MG CAP PO SCH (20:15)
[2025-04-09 03:38] VITALS: O2SAT 98
[2025-04-09 07:41] LABS: Hematocrit (blood only) 37.7 % (37.0-47.0); Hemoglobin 12.5 g/dl (12.0-16.0); Mean Corpuscular Hemoglobin 31.4 pg (25.0-34.0); Mean Corpuscular Volume 94.7 fL (80.0-100.0); Platelet Count 376 K/uL (130-400); RDW Standard Deviation 43.7 fL (36.4-46.3); Red Blood Count 3.98 M/uL (4.20-5.40); White Blood Count 11.68 K/ul (4.8-10.8)
[2025-04-09 07:57] LABS: Anion Gap 8.0 (3-11); Blood Urea Nitrogen 9.0 mg/dl (6-23); Calcium 9.4 mg/dl (8.6-10.3); Carbon Dioxide 25.0 mmol/L (21-32); Chloride 107.0 mmol/L (98-107); Creatinine Clr Calc Pharmacy 103.5 ml/min; Glucose 104.0 mg/dl (70-99(Fasting)); Magnesium 1.9 mg/dl (1.7-2.4); Potassium 3.8 mmol/L (3.5-5.1); Sodium 140.0 mmol/L (136-145)
[2025-04-09 08:03] VITALS: BP 166/80; PULSE 90; TEMP 98.1
[2025-04-09] MEDS: cefTRIAXone SODIUM 2,000 MG/50 ML BAG IV SCH (09:28)
[2025-04-09] MEDS: VENLAFAXINE HCL XR 37.5 MG CAPXR PO SCH (10:09)
--- NOTE | 2025-04-09 11:24 | Urology Progress Note ---
Date of Service April 09, 2025 Assessment & Plan (1) Left ureteral calculus: (2) Hydronephrosis concurrent with and due to calculi of kidney and ureter: Plan POD #1 s/p Cystoscopy, Left Retrograde Pyelogram, Left Stent Placement with Dr. Ogden Feeling well, tolerating the stent with minimal bother Pt afebrile and hemodynamically stable Labs today - WBCs 11.68, creatinine 0.64 Urine culture pending She continues on Ceftriaxone Ok to d/c from perspective Recommend d/c with antibiotics, Tamsulosin, prn Pyridium and prn pain medication for stent management Will arrange follow-up with our service for definitive stone treatment Urology will sign off, please recall as needed Admission and Anticipated Discharge Date Admission Date: April 08, 2025 Subjective Pt seen at bedside this morning. NAD. Reports she is feeling better overall. No significant pain. Tolerating the stent with minimal bother. No fevers. Voiding without issue. Review of Systems Constitutional: as per Subjective / HPI Genitourinary: as per Subjective / HPI Physical Exam Constitutional: no acute distress Respiratory: no respiratory distress and no labored breathing Neurologic: moves all extremities and awake Psychiatric: A+Ox3, euthymic affect Results & Data Vital Signs (Past 12 Hours) Vital Signs Temp Pulse Resp BP Pulse Ox O2 Del Method 04/09/25 07:45 36.7 C 90 16 166/80 H 98 Room Air 04/09/25 03:08 36.8 C 81 16 140/69 98 Room Air 04/08/25 23:25 36.7 C 79 16 111/66 96 Room Air PG Care Time/CCT Total # of Minutes Spent Total Time Spent with Patient: Total time spent is greater than 50% in coordination of care (as documented) at patient's floor/unit and/or counseling patient: Coding Level of Care Code 51105 SUB INP/OBS CARE 2/35MIN Diagnoses Left ureteral calculus N20.1 Hydronephrosis concurrent with and due to calculi of kidney and ureter N13.2
--- NOTE | 2025-04-09 11:35 | Discharge Summary ---
Discharge Summary Date of Service April 09, 2025 Principal Dx & Hospital Course #1 = Principal Diagnosis (1) Left ureteral calculus: (2) Hydronephrosis concurrent with and due to calculi of kidney and ureter: Left (3) Pulmonary nodule less than 6 mm determined by computed tomography of lung: (4) Renal mass: (5) Nicotine use disorder: Plan Hydronephrosis 2/2 ureteral calculus s/p stent placement Patient is a 54-year-old female presents with symptomatic left ureteral calculus with evidence of hydronephrosis. POD #1 s/p Cystoscopy, Left Retrograde Pyelogram, Left Stent Placement with Dr. Alin Ogden noted some purulent drainage from the left ureter when stent was placed. Recommend abx coverage, will complete Cipro course prescribed earlier this week Feeling well, tolerating the stent Pt afebrile and hemodynamically stable Urine culture pending - follow PRN tylenol/ibuprofen, Pyridium Continue Flomax daily [facility] to schedule fullow up in their office Pulmonary nodule Incidental finding: Pulmonary nodule incidentally noted on CT chest - recommend repeat CT in 3-4 months Notes For Next Care Provider hydro with ureteral stone s/p stent placement Medication Changes From Visit Flomax, PRN pyridium and tylenol Admission HPI Per Admitting Provider Patient is a 54-year-old female who over the weekend started with some inter mittent left flank and back pain. She also noticed some hematuria. She saw her PCP on Saturday. Urine analysis was positive for hematuria. She was placed on ciprofloxacin. They also performed a renal ultrasound which showed nodular lesion but no evidence of hydronephrosis at that time. She was coordinated for outpatient MRI of the kidney to evaluate this nodule lesion. However, patient continued to have intermittent, colicky, crampy left flank and back pain. This was associated with some nausea and chills. The pain got so severe overnight that she came to the emergency room today for evaluation. In the emergency room CT scanning showed evidence of obstructing 4 mm left ureter stone with some hydronephrosis. Patient was referred to our service for further evaluation. Time my evaluation the patient's pain was significantly improved. She did receive some Dilaudid and Toradol here in the ED. She confirms the above history. She states that she herself has never had any history of kidney stones. Her daughter has had kidney stones but no other family members. She smokes about 8 cigarettes a day. Denies any alcohol use. Denies any cough or cold symptoms. No chest pain or shortness of breath. She is on Effexor and a transdermal hormone patch for postmenopausal symptoms. She is on compounded semaglutide for weight loss. She denies any other significant medical issues. Admission Exam Per Admitting Provider Constitutional: Alert, nontoxic HEENT: Mucous membranes moist. Sclera clear Neck: Soft, no adenopathy Lungs: Clear to auscultation, decreased, no wheezes rales or rhonchi CV: S1-S2, regular Abdomen: Soft, nontender, nondistended, no significant left CVA tenderness Extremities: No significant edema Musculoskeletal: No significant joint tenderness Neuro: No focal deficits Psych: Cooperative, normal mood Discharge Exam Gen: WD/WN, NAD, sitting in bedside chair, A&Ox3 HEENT: Normocephalic, atraumatic, mucous membranes moist Lung: Clear to Auscultation bilaterally Heart: Regular rate, regular rhythm Abdomen: Soft, NT, ND +BS x 4 : Suprapubic TTP Extremities: no edema Skin: Warm, no rash Updated Medication List Medication Instructions Recorded Confirmed Type ciprofloxacin HCl 500 mg tablet 500 mg PO BID 04/08/25 04/08/25 History cyanocobalamin (vitamin B-12) 100 100 mcg PO DAILY 04/08/25 04/08/25 History mcg tablet (Vitamin B-12) magnesium 250 mg tablet 250 mg PO DAILY 04/08/25 04/08/25 History omega 5-quk-xld-fish oil 1,200 mg 1 cap PO DAILY 04/08/25 04/08/25 History (144 mg-216 mg) capsule (Fish Oil) omeprazole 40 mg capsule,delayed 40 mg PO QAM 04/08/25 04/08/25 History release semaglutide 1 mg/dose (4 mg/3 mL) 4 mg subcut WK 04/08/25 04/08/25 History subcutaneous pen injector (Ozempic) venlafaxine 37.5 mg 37.5 mg PO QAM 04/08/25 04/08/25 History capsule,extended release 24 hr phenazopyridine 200 mg tablet 200 mg PO Q8H PRN pain #6 tabs 04/09/25 Rx (Pyridium) tamsulosin 0.4 mg capsule 0.4 mg PO HS #30 caps 04/09/25 Rx Hospital Stay Data Consultations 04/08/25 11:08 ED Decision to Admit Stat 04/08/25 14:13 Consult Urology Routine Procedures Performed Operation Date: 04/08/25 08:25 Actual Procedures p Cystoscopy, Left Retrograde Pyelogram, Left Stent Placement(Left) - Buddy Ogden MD Diagnostic Imagining Performed 04/08/25 FL retrograde includes kub Routine 04/08/25 07:21 CT abd pelvis IV con only Stat Retrograde Pyelogram 04/08/25 00:00 FL retrograde includes kub CLINICAL HISTORY: STENT COMPARISON STUDY: None FLUOROSCOPY TIME: 16 seconds FLUOROSCOPY IMAGES: 4 EXPOSURE DOSE: 4 mGy FINDINGS: Fluoroscopy was provided for urologic procedure. IMPRESSION: Intraoperative fluoroscopy. ACT 112: Negative or not required by law. Electronically signed by: Aj Stevenson M.D. 04/08/2025 3:46 PM Abdomen/Pelvis CT 04/08/25 07:21 CT SCAN OF THE ABDOMEN AND PELVIS WITH IV CONTRAST CLINICAL HISTORY: Left lower quadrant abdominal pain. Dysuria. COMPARISON STUDY: Abdominal ultrasound dated 03/24/2008. TECHNIQUE: Following the IV administration of 94 cc of Optiray 320, CT scan of the abdomen and pelvis is performed from the lung bases to the proximal femora. Images are reviewed in the axial, sagittal, and coronal planes. IV contrast was administered without complication. A dose lowering technique was utilized adhering to the principles of ALARA. CT DOSE: 1345.23 mGy.cm FINDINGS: Lung bases: The heart is normal in size and without pericardial effusion. There is a 4 mm pulmonary nodule at the left lung base seen on axial image #9. The lung bases are otherwise clear. There is a tiny hiatal hernia. Liver: The contrast-enhanced liver is normal in size, contour, and attenuation. There is no intrahepatic biliary ductal dilatation. The hepatic veins and portal veins are patent. Gallbladder: Unremarkable. Spleen: Normal in size and attenuation. Pancreas: Unremarkable. Adrenal glands: Unremarkable. Kidneys: The contrast enhanced kidneys are normal in size. There is a 4 mm obstructing calculus at the left vesicoureteral junction seen on axial image #316. This causes mild to moderate left hydroureteronephrosis. There is urothelial thickening and enhancement noted in the left ureter. Mild left-sided perinephric stranding is observed. Left renal enhancement is slightly heterogeneous. The right kidney enhances normally. No additional calculi are clearly identified in either kidney on this contrast-enhanced examination. There is no right ureteral stone or right-sided hydronephrosis. There is an 11 mm indeterminate cortical hypodensity in the anterior interpolar right kidney seen on image #178. Overlying cortical scarring is suggested. Abdominal vasculature: The abdominal aorta is normal in course and caliber. Bowel: There is no bowel obstruction. The appendix is well-visualized and normal. Peritoneum: There is no intraperitoneal free air or abdominal ascites. There is a fat-containing umbilical hernia. Lymphadenopathy: None. Pelvic viscera: The bladder is decompressed and not well evaluated. Question of a left-sided ureterocele on axial image #318. Skeletal structures: No lytic or blastic lesions are seen. Sclerotic change is seen in the sacroiliac joints and pubic symphysis. Mild degenerative changes noted in the lumbar spine. IMPRESSION: 1. There is a 4 mm obstructing calculus at the left vesicoureteral junction. This causes mild to moderate left hydroureteronephrosis. 2. There is urothelial thickening and enhancement within left ureter as well as slightly heterogeneous and diminished enhancement of the left kidney as compared to the right. This is likely related to obstruction/hydronephrosis. Correlate with clinical findings and urinalysis to assess for superimposed urinary tract infection. 3. There is an indeterminant 11 mm cortical hypodensity in the interpolar right kidney. Overlying cortical scarring is suggested and this may represent a calyceal diverticulum. Additionally, there is a possible left-sided ureterocele. Follow-up with urology is recommended, as is a CT urogram in 3-4 months time for reassessment of both findings. 4. There is a 4 mm pulmonary nodule the left lung base. A follow-up chest CT in 3-4 months time is recommended for reassessment and full evaluation of the thorax. 5. Additional findings as above. ACT 112: Positive. There are findings on this exam that require communication between the performing entity and the patient following Patient Test Result Information Act ([place] Act 112) guidelines. Electronically signed by: Lyle Archuleta M.D. 04/08/2025 8:48 AM Pending Results Patient Have Any Pending Studies at Discharge: Yes Discharge Instructions Given to Patient (Per Discharging Provider) MEDICATION CHANGES: NEW: Flomax 0.4mg daily Pyridium up to 3x/day as needed for urinary pain Ciprofloxacin 500mg twice daily until course complete PENDING TEST RESULTS: Urine culture RECOMMENDATIONS FOR FOLLOW-UP: Follow up with PCP as scheduled. Follow up with urology as scheduled on 04/15/25 at 1:30pm. Utilize as needed tylenol and advil for pain and as needed Pyridium (has at home) for urinary discomfort. Complete antibiotic in its entirety. Continue medication regimen as scheduled aside from changes noted above. Pulmonary nodule incidentally noted on CT chest - recommend repeat CT in 3-4 months OTHER INSTRUCTIONS: Seek medical attention if you have: * temperature above 101 * chest pain or trouble breathing * abdominal pain, nausea, vomiting * diarrhea, dark stools or bloody stools * any unanswered questions or concerns Call 911 if symptoms are severe. Please take good care of yourself. Call if you have any questions or problems. You can reach a [facility] hospitalist on duty at [facility] 24 hours a day by calling [phone]. Total Time Total Time Spent Total Time Spent (In Minutes): 40 Supervising Physician Co-Signing Physician Notes Patient is seen and examined on day of discharge. Left flank pain resolved. Still has some bladder discomfort with urination. Seem to be tolerating stent. Offers no other complaints. On exam patient is obese, normocephalic atraumatic, EOMI, normal breath sounds, clear to auscultation, S1-S2, no murmur, no pedal edema, abdomen soft, nontender, normal bowel sounds, alert, awake, oriented, grossly no focal deficits. Patient is being managed for obstructive uropathy secondary to left ureteral calculus s/p left ureteral stent placement by Dr. Ogden. Currently receiving IV Rocephin. Continue ciprofloxacin as previously prescribed on discharge. Continue Flomax. Urine culture pending. Appreciate urology input. Needs follow-up with urology on discharge. I personally interviewed and examined the patient at bedside. I have reviewed the advanced practitioner's documentation on the date of service referred in note and agree with plan. Patient's care is coordinated with Stephania Carney PA-C. Please refer to the documentation above for details of patient's presentation and for discussion of other issues. I spent a total [id number] coordinating, documenting, and providing care for this patient excluding time spent in the performance of separately billed services or time spent by another provider/QHP.
== END 2025-04-09 14:05 | disposition home or self-care (01) ==
LOC: ED 06:33 → EDINP 06:33 → SUATTDRO 11:40 → EDINP 14:45 → 3N 16:56